=== PATIENT | female | born 1960 | race Caucasian/White ===

== ENCOUNTER 2022-12-14 13:43 | Outpatient (CLI) | payer BC ==
[~2022-12-14 13:43] MED LIST: Iopamidol 370 76% 100 ML VIAL ONE
== END 2022-12-14 13:44 | disposition home or self-care (01) ==
LOC: BICCT 13:43
PROVIDERS: ATTEND Internal Medicine
DX: R07.1 Chest pain on breathing (principal); R06.00 Dyspnea, unspecified; R14.0 Abdominal distension (gaseous); M43.06 Spondylolysis, lumbar region; K76.0 Fatty (change of) liver, not elsewhere classified; J98.4 Other disorders of lung
CPT/HCPCS: 71260; 74177; Q9967